=== PATIENT | female | born 1985 | race Two or more races ===

== ENCOUNTER 2025-02-11 12:27 | Emergency (ER) | payer MEDICAID ==
[~2025-02-11] VITALS: Ht 162.6 cm; Wt 109.1 kg
[2025-02-11 12:31] VITALS: TEMP 98.5
[2025-02-11 14:08] VITALS: BP 142/95; PULSE 61; O2SAT 98
[2025-02-11] MEDS ORDERED: HYDR-3973 PO (15:27)
--- NOTE | 2025-02-11 15:29 | Physician Documentation ---
History of Present Illness ~ Chief Complaint: Jaw Pain Stated Complaint: POST OP COMPLICATIONS Time Seen by MD: 14:16 HPI Patient is seen today with complaints of left lower jaw pain sitting she had oral surgery and some teeth removed from an oral surgeon just a few days ago and states her pain is uncontrolled. Patient has no other concern or complaint at this time. She states she is now out of the [place] she was given and needs some more. She has no other concern or complaint at this time. She states the swelling is decreasing a little bit with the pain is intolerable Tetanus Within 5 Years: No Medication Reconciliation Allergies: Coded Allergies: No Known Allergies (Unverified , 02/11/25) Review of Systems Constitutional: Denies: chills, fever, weakness Eyes: Denies: pain, blurred vision ENT: Denies: ear pain, nose pain, throat pain, mouth pain Respiratory: Denies: cough, shortness of breath Cardiovascular: Denies: chest pain, palpitations Gastrointestinal: Denies: abdominal pain, nausea, vomiting Genitourinary: Denies: burning, dysuria Female Genitalia: Denies: vaginal discharge, pelvic pain Neurological: Denies: headache, dizziness Musculoskeletal: Denies: pain, swelling Integumentary: Denies: rash, lesions Allergic/Immunologic: Denies: hives, itching Hematologic/Lymphatic: Denies: no symptoms reported Psychiatric: Denies: depression, anxiety Physical Exam Vital Signs: Temperature: 98.5, Source: Temporal, Heart Rate: 61, Respiratory Rate: 18, BP: 142/95, Pulse Oximetry: 98, Weight: 109.090 Oxygen Flow Rate: 0 Physical Exam General: Awake and Alert, no acute distress. HEENT: Patient on exam does have swelling of the left lower jaw. I do not appreciate any purulent drainage from the gums. Healing appears to be progressing well. Conjunctiva pink, Sclera clear, Mucus Membranes moist. Neck: Supple without masses and tenderness. Resp: Unlabored. Lungs clear to auscultation bilaterally. Heart: Regular Rate and rhythm, normal S1 and S2 without murmur, rub or gallop. Extremities: No cyanosis,clubbing or edema. Skin: Warm and Dry. Progress Results/Orders Results/Orders Vital Signs 02/11/25 02/11/25 12:31 14:08 Temp 98.5 Pulse 69 61 Resp 18 18 B/P (MAP) 143/97 142/95 (111) Pulse Ox 99 98 O2 Flow Rate 0 0 Medical Decision Making Findings Patient is seen today with complaints of left lower jaw pain sitting she had oral surgery and some teeth removed from an oral surgeon just a few days ago and states her pain is uncontrolled. Patient has no other concern or complaint at this time. She states she is now out of the [place] she was given and needs some more. She has no other concern or complaint at this time. She states the swelling is decreasing a little bit with the pain is intolerable Patient was given Toradol 30 mg IM in the ED today. Patient was given prescription of [place] 10/325 mg, one tab 4 times a day as needed for pain. Patient will follow up with dentist or primary care for further eval and treatment. Return to ED with any worsening, concerning or changing symptoms. Departure Disposition: 01 HOME / SELF CARE / HOMELESS Impression: Primary Impression: Jaw pain Condition: Improved Discharge Instructions: Dental Pain, [id number] Additional Instructions: Patient was given Toradol 30 mg IM in the ED today. Patient was given prescription of [place] 10/325 mg, one tab 4 times a day as needed for pain. Patient will follow up with dentist or primary care for further eval and treatment. Return to ED with any worsening, concerning or changing symptoms. Referrals: NO PRIMARY CARE PROVIDER (PCP) Prescriptions Hydrocodone Bit/Acetaminophen (Hydrocodone-Apap 10-325 Tablet) 10mg/325mg Tablet 1 TAB PO QID PRN PRN for pain for 5 Days, #20 TAB Prov: ZACHARIAH ABDI 02/11/25 Signature Scribe Signature: No scribe Attestation: No scribe ZACHARIAH ABDI Feb 11, 2025 15:29
[2025-02-11 15:35] VITALS: RESP 18
[2025-02-11] MEDS: ketorolac trometh 30MG/ML vial 30 MG/ML VIAL IM STA (15:35)
== END 2025-02-11 15:43 | disposition home or self-care (01) ==
LOC: ER 12:28
DX: R68.84 Jaw pain (principal)
CPT/HCPCS: 96372; 99283; J1885